=== PATIENT | female | born 2005 | race Caucasian/White ===

== ENCOUNTER 2024-01-09 05:03 | Emergency (ER) | payer OTHER ==
[~2024-01-09] VITALS: Ht 162.6 cm; Wt 79.0 kg
[2024-01-09 05:19] VITALS: O2SAT 98
[2024-01-09 07:13] LABS: HCG SCREEN NEGATIVE
[2024-01-09 09:30] LABS: BASOPHILS % 0.4 % (0.0-2.0); HEMATOCRIT. 36.4 % (36.0-48.0); HEMOGLOBIN. 11.7 g/dL (12.0-16.0); LYMPHOCYTES % 17.8 % (20.0-50.0); MEAN CORPUSCULAR HEMOGLOBIN 26.5 pg (28.0-32.0); MEAN CORPUSCULAR HGB CONC 32.1 g/dL (31.0-37.0); MEAN CORPUSCULAR VOLUME 82.6 fL (81.0-99.0); MEAN PLATELET VOLUME 8.6 fl (7.4-10.4); MONOCYTES % 5.9 % (2.0-8.0); NEUTROPHILS % 74.9 % (40.0-76.0); PLATELET 329 x1000/uL (130-400); RED BLOOD CELL COUNT 4.41 mill/uL (4.2-5.4); RED CELL DISTRIBUTION WIDTH 16.5 % (11.6-14.6); WHITE BLOOD COUNT 8.9 x1000/uL (4.5-11.0)
[2024-01-09 09:32] LABS: CHLORIDE 108 mEq/L (98-107); POTASSIUM 3.6 mEq/L (3.5-5.1); SODIUM 142 mEq/L (136-145)
[2024-01-09 09:33] LABS: CARBON DIOXIDE 25 mEq/L (21-32)
[2024-01-09 09:34] LABS: CALCIUM 9.2 mg/dL (8.7-10.4)
[2024-01-09 09:39] LABS: CREATININE 0.6 mg/dL (0.6-1.0); GLUCOSE 90 mg/dL (70-105); UREA NITROGEN BLOOD 7 mg/dL (9-23)
[2024-01-09] MEDS: PANTOPRAZOLE 40MG DR TABLET PO ONE (11:00)
[2024-01-09 12:00] VITALS: BP 132/76; PULSE 80; RESP 18; TEMP 98.6
[2024-01-09] MEDS: DIAZEPAM 5 MG TABLET PO ONE (12:06)
[2024-01-09] MEDS: ONDANSETRON 4MG ODT PO ONE (12:06)
[2024-01-09] MEDS ORDERED: NON FORMULARY PATIENT HOME MED PO SCH ×2 (12:45)
== END 2024-01-09 13:21 | disposition home or self-care (01) ==
LOC: ER 05:03
DX: F10.20 Alcohol dependence, uncomplicated (principal); J45.909 Unspecified asthma, uncomplicated; I10 Essential (primary) hypertension; Z88.8 Allergy status to other drugs, medicaments and biological substances; Y90.0 Blood alcohol level of less than 20 mg/100 ml
CPT/HCPCS: 36415; 80048; 80320; 84703; 85025; 99283; G0480

== ENCOUNTER 2024-01-12 10:56 | Emergency (ER) | payer OTHER ==
[~2024-01-12] VITALS: Ht 162.6 cm; Wt 82.0 kg
[2024-01-12 10:58] VITALS: TEMP 98.4; O2SAT 99
[2024-01-12] MEDS: OLANZAPINE 5MG TABLET ODT PO ONE (12:15)
[2024-01-12 12:25] LABS: *AMPHETAMINES SCREEN URINE PRESUMPTIVE POSITIVE (NEGATIVE); *BARBITURATES SCREEN URINE NEGATIVE (NEGATIVE); *BENZODIAZEPINES SCREEN URINE NEGATIVE (NEGATIVE)
[2024-01-12 12:26] LABS: *COCAINE SCREEN URINE NEGATIVE (NEGATIVE); CANNABINOID URINE SCREEN NEGATIVE (NEGATIVE); ECSTASY MDMA SCREEN URINE CONF.TEST INDICATED (NEGATIVE); METHADONE URINE SCREEN NEGATIVE (NEGATIVE); OPIATES URINE SCREEN NEGATIVE (NEGATIVE); PHENCYCLIDINE URINE SCREEN NEGATIVE (NEGATIVE)
[2024-01-12] MEDS: ZIPRASIDONE MESYLATE 20MG/VIAL IM ONE (12:28)
[2024-01-12 13:02] LABS: BASOPHILS % 0.2 % (0.0-2.0); EOSINOPHILS % 0.2 % (0.0-5.0); HEMATOCRIT. 36.2 % (36.0-48.0); HEMOGLOBIN. 12.1 g/dL (12.0-16.0); LYMPHOCYTES % 19.3 % (20.0-50.0); MEAN CORPUSCULAR HEMOGLOBIN 27.3 pg (28.0-32.0); MEAN CORPUSCULAR HGB CONC 33.5 g/dL (31.0-37.0); MEAN CORPUSCULAR VOLUME 81.4 fL (81.0-99.0); MEAN PLATELET VOLUME 7.9 fl (7.4-10.4); MONOCYTES % 7.8 % (2.0-8.0); NEUTROPHILS % 72.5 % (40.0-76.0); PLATELET 348 x1000/uL (130-400); RED BLOOD CELL COUNT 4.45 mill/uL (4.2-5.4); RED CELL DISTRIBUTION WIDTH 15.6 % (11.6-14.6); WHITE BLOOD COUNT 10.5 x1000/uL (4.5-11.0)
[2024-01-12 13:13] LABS: CHLORIDE 104 mEq/L (98-107); POTASSIUM 3.2 mEq/L (3.5-5.1); SODIUM 138 mEq/L (136-145)
[2024-01-12 13:14] LABS: CARBON DIOXIDE 22 mEq/L (21-32)
[2024-01-12 13:15] LABS: CALCIUM 9.6 mg/dL (8.7-10.4)
[2024-01-12 13:19] LABS: CREATININE 0.7 mg/dL (0.6-1.0); GLUCOSE 88 mg/dL (70-105)
[2024-01-12 13:20] LABS: UREA NITROGEN BLOOD 10 mg/dL (9-23)
[2024-01-12 13:24] LABS: ETHANOL BLOOD < 10 mg/dL (<10)
[2024-01-12 13:52] LABS: HCG SCREEN NEGATIVE
[2024-01-12 16:01] VITALS: BP 125/77; PULSE 92; RESP 18
[2024-01-12] MEDS: POTASSIUM CHLORIDE 20MEQ TABLET SR PO NR (17:00)
== END 2024-01-13 02:53 | disposition admitted as inpatient to this hospital (09) ==
LOC: ER 10:56
DX: R45.1 Restlessness and agitation (principal); T43.655A Adverse effect of methamphetamines, initial encounter; J45.909 Unspecified asthma, uncomplicated; I10 Essential (primary) hypertension; F17.210 Nicotine dependence, cigarettes, uncomplicated; Y92.89 Other specified places as the place of occurrence of the external cause
CPT/HCPCS: 80305; 80048; 81025; 80320; 84703; 85025; 36415; 96372; 99283; J3486; G0480